=== PATIENT | male | born 1990 | race African-American/Black ===

== ENCOUNTER 2021-10-03 22:23 | Emergency (ER) | payer MEDICAID ==
[~2021-10-03] VITALS: Ht 180.3 cm; Wt 104.0 kg
[2021-10-03 22:42] VITALS: BP 138/89
[2021-10-04] MEDS ORDERED: KETOROLAC 60MG/2ML VIAL IM ONE (00:15)
[2021-10-04] MEDS ORDERED: IBUP-2028 MT (01:09)
== END 2021-10-04 08:56 | disposition home or self-care (01) ==
LOC: ER 22:23
DX: S43.491A Other sprain of right shoulder joint, initial encounter (principal); X58.XXXA Exposure to other specified factors, initial encounter; Y93.89 Activity, other specified; Y92.89 Other specified places as the place of occurrence of the external cause; Y99.8 Other external cause status
CPT/HCPCS: 73030; 96372; 99283; J1885